=== PATIENT | female | born 1970 | race Caucasian/White ===

== ENCOUNTER 2017-03-23 10:58 | Emergency (ER) | payer OTHER ==
[2017-03-23 11:04] VITALS: BP 123/62; PULSE 67; TEMP 98.3; BMI 33.5
--- NOTE | 2017-03-23 11:36 | PDOC ---
History of Present Illness - General Chief Complaint: Pain Stated Complaint: RT ANKLE PAIN Time Seen by Provider: 03/23/17 11:04 History Source: Patient - History of Present Illness Occurred: reports: other Severity: Yes: mild Lower Extremity Pain Location: right: ankle Method of Injury: Yes: twisted Past History - Past Medical History Allergies/Adverse Reactions: Allergies Allergy/AdvReac Type Severity Reaction Status Date / Time No Known Allergies Allergy Verified 03/23/17 11:01 Home Medications: Ambulatory Orders NK [No Known Home Medication] 03/23/17 Cardiac Disorders: Yes (asd) - Surgical History Cardiac Surgery: Yes (asd repair) - Suicide/Smoking/Psychosocial Hx Smoking History: Never smoked Hx Alcohol Use: No Drug/Substance Use Hx: No Substance Use Type: None Review of Systems - Review of Systems Musculoskeletal: Yes: Joint Pain, Joint Swelling *Physical Exam - Vital Signs Last Vital Signs Temp Pulse Resp BP Pulse Ox 98.3 F 67 18 123/62 100 03/23/17 11:01 03/23/17 11:01 03/23/17 11:01 03/23/17 11:01 03/23/17 11:01 - Physical Exam General Appearance: Yes: Appropriately Dressed. No: Apparent Distress HEENT: positive: Normal Voice Neck: positive: Supple Respiratory/Chest: negative: Respiratory Distress Extremity: positive: Swelling (minimal swelling to lateral malleolus, no tenderness to palpation, bearing weight in ED). negative: Tender Integumentary: positive: Dry, Warm Neurologic: positive: Fully Oriented, Alert, Normal Mood/Affect Medical Decision Making - Medical Decision Making 03/23/17 11:33 46-year-old female, no significant history here with right ankle pain. Patient states approximately 3 weeks ago, she "twisted" right ankle but did not fall. Has had pain to lateral aspect of right ankle that is persistent and now radiates to R knee but has been bearing weight since injury. Pt does admit that pain is improving. Has not taken anything for pain. See exam Ankle sprain No e/o serious injury at this time -Dc w/ otxc meds and ortho follow up given duration of pain 03/23/17 11:37 *DC/Admit/Observation/Transfer Diagnosis at time of Disposition: Ankle sprain Qualifiers: Encounter type: initial encounter Involved ligament of ankle: unspecified ligament Laterality: right Qualified Code(s): S93.401A - Sprain of unspecified ligament of right ankle, initial encounter; S93.401A - Sprain of unspecified ligament of right ankle, initial encounter - Discharge Dispostion Disposition: HOME Condition at time of disposition: Good - Referrals Referrals: Jeremy Lott [Primary Care Provider] - Hua Moeller MD [Staff Physician] - - Patient Instructions Printed Discharge Instructions: DI for Ankle Sprain Additional Instructions: Take 600-800mg motrin as needed for pain and follow up with Dr Moeller of orthopedics
== END 2017-03-23 11:44 | disposition home or self-care (01) ==
LOC: JERFT 10:58
DX: S93.401A Sprain of unspecified ligament of right ankle, initial encounter (principal); X58.XXXA Exposure to other specified factors, initial encounter; Y93.89 Activity, other specified; Y92.89 Other specified places as the place of occurrence of the external cause
CPT/HCPCS: 99281-25

== ENCOUNTER 2019-07-20 10:29 | Emergency (ER) | payer OTHER ==
[2019-07-20 10:41] VITALS: BMI 35.2
[2019-07-20] MEDS ORDERED: ACETAMINOPHEN 1000 MG/100 ML VIAL (NON FORMULARY) IVPB ONE (11:23)
[2019-07-20] MEDS ORDERED: SODIUM CHLORIDE 1,000 ML IV STA (11:23)
--- NOTE | 2019-07-20 11:37 | PDOC ---
Documentation entered by Padmini Simental SCRIBE, acting as scribe for Rakan Harrington MD. Rakan Harrington MD: This documentation has been prepared by the Hola taylor Xhesika, SCRIBE, under my direction and personally reviewed by me in its entirety. I confirm that the documentation accurately reflects all work, treatment, procedures, and medical decision making performed by me. History of Present Illness - General Chief Complaint: Lightheaded Stated Complaint: DIZZINESS,VOMITING Time Seen by Provider: 07/20/19 11:05 History Source: Patient Exam Limitations: No Limitations - History of Present Illness Initial Comments: 07/20/19 11:22 The patient is a 49 year old female with a significant PMH of ASD repair who presents to the emergency department for lightheadedness. The patient states she woke up this morning in her US[place]. While walking around the house, she began to feel very flushed. She reports feeling lightheaded, as if she was going to pass out. Pt denies LOC. Pt states she had 1 episode of nbnb emesis shortly after, which relieved her lightheadedness. Pt now denies nausea or lightheadedness. Pt states she is currently on her menstrual cycle and is endorsing mild suprapubic cramping. Also reports 2-3 days of R ear pain. Patient denies chest pain, shortness of breath, headache and dizziness. Denies fever, chills, cough, nausea, vomiting, diarrhea and constipation. Allergies: NKDA PCP: Jeremy Salmeron Past History - Past Medical History Allergies/Adverse Reactions: Allergies Allergy/AdvReac Type Severity Reaction Status Date / Time No Known Allergies Allergy Verified 07/20/19 10:36 Home Medications: Ambulatory Orders Cephalexin [Keflex] 500 mg PO QID #20 capsule 07/20/19 Cardiac Disorders: Yes (asd) COPD: No - Surgical History Cardiac Surgery: Yes (asd repair) - Psycho Social/Smoking Cessation Hx Smoking History: Never smoked Hx Alcohol Use: No Drug/Substance Use Hx: No Substance Use Type: None Review of Systems - Review of Systems Able to Perform ROS?: Yes Comments:: 07/20/19 11:23 GENERAL/CONSTITUTIONAL: No fever or chills. No weakness. HEAD, EYES, EARS, NOSE AND THROAT: No change in vision. No discharge. + R ear pain. No sore throat. CARDIOVASCULAR: No chest pain, no shortness of breath, no loss of consciousness RESPIRATORY: No cough, wheezing, or hemoptysis. GASTROINTESTINAL: + vomiting. No nausea, diarrhea or constipation. GENITOURINARY: No dysuria, frequency, or change in urination. MUSCULOSKELETAL: +suprapubic pain. No joint or muscle swelling. No neck or back pain. SKIN: No rash NEUROLOGIC: +lightheadedness. No vertigo, no change in strength/sensation. ENDOCRINE: No increased thirst. No abnormal weight change. HEMATOLOGIC/LYMPHATIC: No anemia, easy bleeding, or history of blood clots. ALLERGIC/IMMUNOLOGIC: No hives or skin allergy. *Physical Exam - Vital Signs Last Vital Signs Temp Pulse Resp BP Pulse Ox 89 20 123/76 98 07/20/19 10:38 07/20/19 10:38 07/20/19 10:38 07/20/19 10:38 - Physical Exam 07/20/19 11:24 GENERAL: Awake, alert, and fully oriented, in no acute distress. HEAD: No signs of trauma EYES: PERRLA, EOMI, sclera anicteric, conjunctiva clear ENT: + R TM erythematous, Auricles normal inspection, hearing grossly normal, nares patent, oropharynx clear without exudates. Moist mucosa NECK: Nontender, no stepoffs, Normal ROM, supple, no lymphadenopathy, JVD, or masses LUNGS: Breath sounds equal, clear to auscultation bilaterally. No wheezes, and no crackles HEART: Regular rate and rhythm, normal S1 and S2, no murmurs, rubs or gallops ABDOMEN: Soft, nontender, normoactive bowel sounds. No guarding, no rebound. No masses EXTREMITIES: Normal range of motion, no edema. No clubbing or cyanosis. No cords, erythema, or tenderness NEUROLOGICAL: Cranial nerves II through XII intact. 5/5 strength and sensation in all extremities, Normal speech, normal gait, normal cerebellar function SKIN: Warm, Dry, normal turgor, no rashes or lesions noted. ED Treatment Course - LABORATORY CBC & Chemistry Diagram: 07/20/19 11:40 07/20/19 11:40 Medical Decision Making - Medical Decision Making 07/20/19 11:39 49 F with lightheadedness, N+V today. Also with R ear pain and found to have possible otitis media. Suspect viral syndrome. - Labs - EKG - IVF, tylenol 07/20/19 12:45 UA suspicious for UTI Labs otherwise wnl Will tx with Keflex for UTI and likely otitis Pt is well appearing, with normal vitals. Clinically stable for DC at this time. I discussed the physical exam findings, ancillary test results and final diagnoses with the patient. I answered all of the patient's questions. The patient was satisfied with the care received and felt comfortable with the discharge plan and treatment plan. The patient agrees to follow up with the primary care physician within 24-72 hours. Discharge - Discharge Information Problems reviewed: Yes Clinical Impression/Diagnosis: Otitis media, UTI (urinary tract infection) Disposition: HOME - Additional Discharge Information Prescriptions: Cephalexin [Keflex] 500 mg PO QID #20 capsule - Follow up/Referral Referrals: Jeremy Lott [Primary Care Provider] - - Patient Discharge Instructions Patient Printed Discharge Instructions: DI for Urinary Tract Infection (UTI), DI for Middle Ear Infection-Adult Additional Instructions: You have a urinary tract infection, as well as an ear infection. Take the antibiotic as prescribed to treat both. If you experience worsening pain, fevers, chest pain, shortness of breath, fainting, or any other concerning symptoms, return to the ER immediately. Otherwise, follow up with your primary doctor within 1 week for re-evaluation. You have an abnormal finding on your EKG that should be further evaluated. Bring a copy of your EKG to your doctor. - Post Discharge Activity Work/Back to School Note: Back to Work
[2019-07-20] MEDS ORDERED: ACETAMINOPHEN INJECTION 100 ML IVPB ONE (11:42)
[2019-07-20 12:06] LABS: BASO % 0.8 % (0-2.0); EOS % 0.4 % (0-4.5); HEMATOCRIT 37.4 % (32.4-45.2); HEMOGLOBIN 12.6 GM/dL (10.7-15.3); LYMPH % 14.3 % (8-40); MCH 30.2 pg (25.7-33.7); MCHC 33.8 g/dl (32.0-36.0); MEAN CELL VOLUME 89.5 fl (80-96); MONO % 5.3 % (3.8-10.2); NEUT % 79.2 % (42.8-82.8); PLATELET COUNT 288 K/MM3 (134-434); RBC 4.18 M/mm3 (3.60-5.2); RDW 13.2 % (11.6-15.6); WHITE BLOOD COUNT 10.8 K/mm3 (4.0-10.0)
[2019-07-20 12:10] LABS: EPI CELLS 1.5 /HPF (0-5/HPF); HYALINE CASTS 4 /lpf (0-8); PH,URINE 7.5 (5.0-8.0); URINE APPEARANCE CLOUDY; URINE BACTERIA 22.9 /hpf (NEGATIVE); URINE BILIRUBIN NEGATIVE (NEGATIVE); URINE COLOR RED; URINE GLUCOSE (UA) NEGATIVE (NEGATIVE); URINE KETONE TRACE (NEGATIVE); URINE LEUK ESTERASE 1+ (NEGATIVE); URINE NITRITE NEGATIVE (NEGATIVE); URINE PROTEIN 1+ (NEGATIVE); URINE RBC 1306 /hpf (0-4); URINE UROBILINOGEN 0.2 mg/dL (0.2-1.0); URINE WBC 21 /hpf (0-5)
[2019-07-20 12:39] LABS: ALBUMIN 3.6 g/dl (3.4-5.0); ALK PHOS 61 U/L (45-117); ANION GAP 8 MMOL/L (8-16); BILIRUBIN,TOTAL 0.3 mg/dL (0.2-1); BLOOD UREA NITROGEN 9.5 mg/dL (7-18); CALCIUM 9.2 mg/dL (8.5-10.1); CHLORIDE 102 mmol/L (98-107); CO2 28 mmol/L (21-32); CREATININE 0.6 mg/dL (0.55-1.3); GLUCOSE,RANDOM 118 mg/dL (74-106); POTASSIUM 4.2 mmol/L (3.5-5.1); SGOT/AST 16 U/L (15-37); SGPT/ALT 26 U/L (13-61); SODIUM 138 mmol/L (136-145); TOT PROT 7.7 g/dl (6.4-8.2)
[2019-07-20] MEDS ORDERED: CEPHALEXIN MONOHYDRATE 500 MG CAPSULE (UD) PO ONE (12:49)
[2019-07-20] MEDS ORDERED: CEPHALEXIN MONOHYDRATE 500 MG CAPSULE (UD) ONE (12:55)
[2019-07-20 13:06] VITALS: BP 105/55; PULSE 72
--- NOTE | 2019-07-20 13:54 | EKG ---
Test Reason : Blood Pressure : / mmHG Vent. Rate : 075 BPM Atrial Rate : 075 BPM P-R Int : 156 ms QRS Dur : 076 ms QT Int : 388 ms P-R-T Axes : 025 028 089 degrees QTc Int : 433 ms NORMAL SINUS RHYTHM NONSPECIFIC T WAVE ABNORMALITY ABNORMAL ECG WHEN COMPARED WITH ECG OF 17-JUN-2006 09:37, T WAVE INVERSION NO LONGER EVIDENT IN INFERIOR LEADS NONSPECIFIC T WAVE ABNORMALITY, WORSE IN LATERAL LEADS Confirmed by Zack Mohamud ([id number]) on 07/20/2019 1:54:05 PM Referred By: Confirmed By:Zack Mohamud
== END 2019-07-20 13:07 | disposition home or self-care (01) ==
LOC: JER 10:29
PROC: 3E033NZ Introduction of Analgesics, Hypnotics, Sedatives into Peripheral Vein, Percutaneous Approach (ICD-10-PCS; principal; 2019-07-20)
DX: H66.90 Otitis media, unspecified, unspecified ear (principal); N39.0 Urinary tract infection, site not specified
CPT/HCPCS: 36415; 80053; 81003; 82550; 84484; 84703; 85025; 93005; 93010; 99283-25; J0131; J7030